=== PATIENT | male | born 1940 | race African-American/Black ===

== ENCOUNTER 2018-04-06 11:38 | Inpatient (IN) ==
[2018-04-06] MEDS ORDERED: ALBUTEROL 2.5 MG/3 ML NEB RESP TX STA (12:11)
[2018-04-06 12:15] LABS: Basophils # 0.1 10*3/uL (0.0-0.2); Basophils % 0.9 % (0.0-0.8); Eosinophils # 0.1 10*3/uL (0.0-0.87); Eosinophils % 0.9 % (0.00-10.9); Hematocrit 46.7 VOL% (42.0-52.0); Hemoglobin 14.9 GM/DL (14.0-18.0); Immature Granulocytes % 6.6 %; Immature Granulocytes Absolute 0.93 #; Lymphocytes # 3.4 10*3/uL (1.4-4.0); Lymphocytes % 23.9 % (21.2-54.2); Mean Corpuscular HGB Conc 31.9 GM/DL (32-36); Mean Corpuscular Hemoglobin 30 PG (27-34); Mean Corpuscular Volume 93.6 FL (87-102); Mean Platelet Volume 9.7 FL (9.6-12.0); Monocytes # 1.1 10*3/uL (0.11-0.8); Monocytes % 7.5 % (1.7-12.7); NRBC # 0.03 10*3/uL; Neutrophils # 8.5 10*3/uL (1.4-7.4); Neutrophils % 60.2 % (38.7-73.9); Platelet Count 293 T/CUMM (130-400); Red Blood Count 4.99 MC/CUMM (3.8-5.5); Red Cell Distribution Width 14.4 % (9.3-17.3); White Blood Count 14.1 T/CUMM (4-12)
[2018-04-06 12:36] LABS: Bilirubin,Total 0.6 MG/DL (0.2-1.0); Calcium 8.5 MG/DL (8.5-10.1); Osmolality,Calculated 285.3 MOS/KG (273-304); Potassium 4.2 MMOL/L (3.5-5.1); Total Protein 6.6 G/DL (6.4-8.3)
[2018-04-06 13:16] LABS: Anisocytosis 1+; Band Neutrophils 1 % (0-10); Eosinophils 3 % (0-10); Lymphocytes 22 % (20-55); Macrocytosis Slight; Platelet Estimate Normal; Segmented Neutrophils 69 % (50-85); Total Cells Counted 100
[2018-04-06] MEDS ORDERED: methylPREDNISolone SOD SUC 125 MG/2 ML VIAL IV STA (13:17)
[2018-04-06] MEDS ORDERED: LEVOFLOXACIN INJ 500 MG in PREMIX 1 EACH IV STA (13:17)
[2018-04-06] MEDS ORDERED: GLUCAGON 1 MG VIAL IM PRN (13:48)
[2018-04-06] MEDS ORDERED: ONDANSETRON 4 MG/2 ML VIAL IV PRN (13:48)
[2018-04-06] MEDS ORDERED: DEXTROSE 50% 25 GM/50 ML VIAL IV PRN (13:48)
[2018-04-06] MEDS ORDERED: PROMETHAZINE 25 MG/1 ML VIAL IM PRN (13:48)
[2018-04-06] MEDS ORDERED: ALBUTEROL 2.5 MG/3 ML NEB RESP TX PRN (13:52)
[2018-04-06] MEDS: PIPERACILLIN/TAZOBACTAM 3,375 MG in SODIUM CHLORIDE 0.9% 100 ML IV SCH ×2 (15:35→22:51)
[2018-04-06] MEDS: ALBUTEROL/IPRATROPIUM 3 ML NEB RESP TX SCH ×2 (16:33→19:24)
[2018-04-06] MEDS: INSULIN LISPRO 100 UNIT/ML SUBCUT SCH ×2 (17:16→22:46)
[2018-04-06] MEDS: GABAPENTIN 600 MG TABLET PO SCH (22:46)
[2018-04-06] MEDS: guaiFENesin/DM ER 600-30 MG TABLET PO SCH (22:46)
[2018-04-06] MEDS: SIMVASTATIN 40 MG TABLET PO SCH (22:46)
[2018-04-06] MEDS: BRIMONIDINE 0.15% OPH SOLN 1 DROP/DROPS BOTTLE BOTH EYES SCH (22:47)
[2018-04-06] MEDS: PILOCARPINE 2% BOTH EYES SCH (22:47)
[2018-04-06] MEDS: methylPREDNISolone SOD SUC 125 MG/2 ML VIAL IV SCH (22:50)
[2018-04-06] MEDS: LATANOPROST 0.005% OPH SOLN 2.5 ML BOTTLE BOTH EYES SCH (22:50)
[2018-04-07] MEDS: ALBUTEROL/IPRATROPIUM 3 ML NEB RESP TX SCH ×4 (00:23→19:46)
[2018-04-07 05:58] LABS: Basophils # 0.1 10*3/uL (0.0-0.2); Basophils % 0.5 % (0.0-0.8); Hematocrit 42.8 VOL% (42.0-52.0); Immature Granulocytes % 5.5 %; Immature Granulocytes Absolute 0.81 #; Lymphocytes # 1.6 10*3/uL (1.4-4.0); Mean Corpuscular HGB Conc 32.7 GM/DL (32-36); Mean Corpuscular Hemoglobin 30 PG (27-34); Mean Corpuscular Volume 91.6 FL (87-102); Mean Platelet Volume 9.8 FL (9.6-12.0); Monocytes # 0.2 10*3/uL (0.11-0.8); Platelet Count 294 T/CUMM (130-400); Red Blood Count 4.67 MC/CUMM (3.8-5.5); Red Cell Distribution Width 14.2 % (9.3-17.3); White Blood Count 14.6 T/CUMM (4-12)
[2018-04-07 06:24] LABS: Albumin 2.5 G/DL (3.4-5.0); Bilirubin,Total 0.6 MG/DL (0.2-1.0); Calcium 8.8 MG/DL (8.5-10.1); Osmolality,Calculated 289.1 MOS/KG (273-304); Potassium 4.2 MMOL/L (3.5-5.1); Thyroid Stimulating Hormone 0.418 uIU/ml (0.358-3.74); Total Protein 6.6 G/DL (6.4-8.3)
[2018-04-07 06:31] LABS: Band Neutrophils 1 % (0-10); Lymphocytes 11 % (20-55); Platelet Estimate Normal; Segmented Neutrophils 86 % (50-85); Total Cells Counted 100
[2018-04-07] MEDS: methylPREDNISolone SOD SUC 125 MG/2 ML VIAL IV SCH ×3 (06:52→22:27)
[2018-04-07] MEDS: PIPERACILLIN/TAZOBACTAM 3,375 MG in SODIUM CHLORIDE 0.9% 100 ML IV SCH ×3 (06:53→22:29)
[2018-04-07] MEDS: metFORMIN 500 MG TABLET PO SCH (08:55)
[2018-04-07] MEDS: POTASSIUM CHLORIDE 20 MEQ TABLET PO SCH (08:55)
[2018-04-07] MEDS: INSULIN LISPRO 100 UNIT/ML SUBCUT SCH ×4 (08:55→22:25)
[2018-04-07] MEDS: PANTOPRAZOLE 40 MG TABLET PO SCH (08:55)
[2018-04-07] MEDS: GABAPENTIN 600 MG TABLET PO SCH ×2 (08:55→22:26)
[2018-04-07] MEDS: TAMSULOSIN 0.4 MG CAPSULE PO SCH (08:56)
[2018-04-07] MEDS: RIVAROXABAN 10 MG TABLET PO SCH (08:56)
[2018-04-07] MEDS: DILTIAZEM CD 240 MG CAPSULE PO SCH (08:56)
[2018-04-07] MEDS: BRIMONIDINE 0.15% OPH SOLN 1 DROP/DROPS BOTTLE BOTH EYES SCH ×2 (08:56→22:27)
[2018-04-07] MEDS: ASPIRIN EC 325 MG TABLET PO SCH (08:56)
[2018-04-07] MEDS ORDERED: FUROSEMIDE 80 MG TABLET PO SCH (09:00)
[2018-04-07] MEDS ORDERED: MONTELUKAST 10 MG TABLET PO SCH (09:00)
[2018-04-07] MEDS ORDERED: PANTOPRAZOLE 40 MG TABLET PO SCH (09:00)
[2018-04-07] MEDS ORDERED: DILTIAZEM CD 180 MG CAPSULE PO SCH (09:00)
[2018-04-07] MEDS: NON-FORMULARY MEDICATION (Fluticasone/Vilanterol [Breo Ellipta 100-25 Mcg Inh] 1 PUFF) INH SCH (09:01)
[2018-04-07] MEDS: guaiFENesin/DM ER 600-30 MG TABLET PO SCH ×2 (09:01→22:26)
[2018-04-07] MEDS: PILOCARPINE 2% BOTH EYES SCH ×2 (09:01→22:27)
[2018-04-07 09:17] LABS: Apearance,Urine CLEAR (Clear); Bilirubin,Urine Negative (Negative); Blood, Urine Negative (Negative); Glucose,Urine (UA) Negative (Negative); Ketones,Urine Negative (Negative); Mucus,Urine Occasional /LPF (Occasional); Nitrite,Urine Negative (Negative); Protein,Urine Negative; RBC,Urine 1 /HPF (0-4); Urine Color Straw (Yellow); Urine Urobilinogen < 2.0 EU/DL (0.2-1.0); WBC,Urine <1 /HPF (0-6)
[2018-04-07] MEDS ORDERED: DILTIAZEM 60 MG TABLET PO ONE (09:30)
[2018-04-07] MEDS: DORNASE ALFA 2.5 MG/2.5 ML VIAL RESP TX SCH ×2 (12:18→19:46)
[2018-04-07] MEDS: DIGOXIN 0.25 MG TABLET PO SCH (12:23)
[2018-04-07] MEDS: LEVOFLOXACIN INJ 500 MG in PREMIX 1 EACH IV SCH (12:23)
[2018-04-07] MEDS ORDERED: LEVOFLOXACIN INJ 750 MG in PREMIX 1 EACH IV SCH (13:00)
[2018-04-07] MEDS: SIMVASTATIN 40 MG TABLET PO SCH (22:26)
[2018-04-07] MEDS: MONTELUKAST 10 MG TABLET PO SCH (22:27)
[2018-04-07] MEDS: LATANOPROST 0.005% OPH SOLN 2.5 ML BOTTLE BOTH EYES SCH (22:27)
[2018-04-08] MEDS: ALBUTEROL/IPRATROPIUM 3 ML NEB RESP TX SCH ×5 (01:23→19:26)
[2018-04-08 05:22] LABS: Calcium 8.9 MG/DL (8.5-10.1); Osmolality,Calculated 295.8 MOS/KG (273-304); Potassium 4.5 MMOL/L (3.5-5.1)
[2018-04-08 05:46] LABS: Hemoglobin 13.7 GM/DL (14.0-18.0); Red Blood Count 4.55 MC/CUMM (3.8-5.5); White Blood Count 28.2 T/CUMM (4-12)
[2018-04-08] MEDS: methylPREDNISolone SOD SUC 125 MG/2 ML VIAL IV SCH ×3 (05:46→21:14)
[2018-04-08 05:47] LABS: Basophils # 0.1 10*3/uL (0.0-0.2); Basophils % 0.3 % (0.0-0.8); Immature Granulocytes % 3.8 %; Immature Granulocytes Absolute 1.07 #; Lymphocytes # 1.4 10*3/uL (1.4-4.0); Lymphocytes % 4.9 % (21.2-54.2); Mean Corpuscular HGB Conc 32.6 GM/DL (32-36); Mean Corpuscular Hemoglobin 30 PG (27-34); Mean Corpuscular Volume 92.3 FL (87-102); Mean Platelet Volume 10.1 FL (9.6-12.0); Monocytes # 0.7 10*3/uL (0.11-0.8); Monocytes % 2.6 % (1.7-12.7); Neutrophils # 24.9 10*3/uL (1.4-7.4); Neutrophils % 88.4 % (38.7-73.9); Platelet Count 301 T/CUMM (130-400); Red Cell Distribution Width 14.3 % (9.3-17.3)
[2018-04-08] MEDS: PIPERACILLIN/TAZOBACTAM 3,375 MG in SODIUM CHLORIDE 0.9% 100 ML IV SCH ×3 (05:47→21:14)
[2018-04-08 06:48] LABS: Lymphocytes 3 % (20-55); Platelet Estimate Normal; Segmented Neutrophils 94 % (50-85); Total Cells Counted 100
[2018-04-08 06:49] LABS: Polychromasia Few
[2018-04-08] MEDS: DORNASE ALFA 2.5 MG/2.5 ML VIAL RESP TX SCH ×2 (07:27→20:47)
[2018-04-08] MEDS: INSULIN LISPRO 100 UNIT/ML SUBCUT SCH ×3 (09:00→16:43)
[2018-04-08] MEDS: metFORMIN 500 MG TABLET PO SCH (09:01)
[2018-04-08] MEDS: BRIMONIDINE 0.15% OPH SOLN 1 DROP/DROPS BOTTLE BOTH EYES SCH (09:02)
[2018-04-08] MEDS: ASPIRIN EC 325 MG TABLET PO SCH (09:02)
[2018-04-08] MEDS: TAMSULOSIN 0.4 MG CAPSULE PO SCH (09:03)
[2018-04-08] MEDS: NON-FORMULARY MEDICATION (Fluticasone/Vilanterol [Breo Ellipta 100-25 Mcg Inh] 1 PUFF) INH SCH (09:05)
[2018-04-08] MEDS: GABAPENTIN 600 MG TABLET PO SCH ×2 (09:06→21:15)
[2018-04-08] MEDS: guaiFENesin/DM ER 600-30 MG TABLET PO SCH ×2 (09:06→21:15)
[2018-04-08] MEDS: PILOCARPINE 2% BOTH EYES SCH (09:06)
[2018-04-08] MEDS: POTASSIUM CHLORIDE 20 MEQ TABLET PO SCH (09:06)
[2018-04-08] MEDS: MONTELUKAST 10 MG TABLET PO SCH ×2 (09:07→21:15)
[2018-04-08] MEDS: RIVAROXABAN 10 MG TABLET PO SCH (09:07)
[2018-04-08] MEDS: PANTOPRAZOLE 40 MG TABLET PO SCH (09:07)
[2018-04-08] MEDS: DILTIAZEM CD 240 MG CAPSULE PO SCH (12:41)
[2018-04-08] MEDS: DIGOXIN 0.25 MG TABLET PO SCH (13:21)
[2018-04-08] MEDS: LEVOFLOXACIN INJ 500 MG in PREMIX 1 EACH IV SCH (13:26)
[2018-04-08] MEDS: SIMVASTATIN 40 MG TABLET PO SCH (21:15)
[2018-04-09] MEDS: ALBUTEROL/IPRATROPIUM 3 ML NEB RESP TX SCH ×4 (00:26→19:44)
[2018-04-09] MEDS: LATANOPROST 0.005% OPH SOLN 2.5 ML BOTTLE BOTH EYES SCH ×2 (01:58→22:29)
[2018-04-09] MEDS: INSULIN LISPRO 100 UNIT/ML SUBCUT SCH ×5 (01:58→22:28)
[2018-04-09] MEDS: BRIMONIDINE 0.15% OPH SOLN 1 DROP/DROPS BOTTLE BOTH EYES SCH ×3 (01:58→22:28)
[2018-04-09] MEDS: PILOCARPINE 2% BOTH EYES SCH ×3 (01:58→22:28)
[2018-04-09] MEDS: methylPREDNISolone SOD SUC 125 MG/2 ML VIAL IV SCH (05:01)
[2018-04-09] MEDS: PIPERACILLIN/TAZOBACTAM 3,375 MG in SODIUM CHLORIDE 0.9% 100 ML IV SCH ×3 (05:17→21:02)
[2018-04-09 05:36] LABS: Basophils # 0.1 10*3/uL (0.0-0.2); Basophils % 0.3 % (0.0-0.8); Hematocrit 40.7 VOL% (42.0-52.0); Hemoglobin 12.9 GM/DL (14.0-18.0); Immature Granulocytes % 3.4 %; Immature Granulocytes Absolute 0.94 #; Lymphocytes % 3.8 % (21.2-54.2); Mean Corpuscular HGB Conc 31.7 GM/DL (32-36); Mean Corpuscular Hemoglobin 30 PG (27-34); Mean Corpuscular Volume 93.8 FL (87-102); Monocytes # 0.7 10*3/uL (0.11-0.8); Monocytes % 2.5 % (1.7-12.7); Platelet Count 291 T/CUMM (130-400); Red Blood Count 4.34 MC/CUMM (3.8-5.5); Red Cell Distribution Width 14.4 % (9.3-17.3); White Blood Count 27.7 T/CUMM (4-12)
[2018-04-09 05:56] LABS: Calcium 8.6 MG/DL (8.5-10.1); Osmolality,Calculated 301.6 MOS/KG (273-304); Potassium 4.5 MMOL/L (3.5-5.1)
[2018-04-09 06:05] LABS: Hypochromasia 1+; Lymphocytes 5 % (20-55); Ovalocytes Slight; Platelet Estimate Adequate; Segmented Neutrophils 91 % (50-85); Total Cells Counted 100
[2018-04-09] MEDS: DORNASE ALFA 2.5 MG/2.5 ML VIAL RESP TX SCH ×2 (07:19→19:44)
[2018-04-09] MEDS: TAMSULOSIN 0.4 MG CAPSULE PO SCH (08:54)
[2018-04-09] MEDS: PANTOPRAZOLE 40 MG TABLET PO SCH (08:54)
[2018-04-09] MEDS: guaiFENesin/DM ER 600-30 MG TABLET PO SCH ×2 (08:54→20:40)
[2018-04-09] MEDS: ASPIRIN EC 325 MG TABLET PO SCH (08:54)
[2018-04-09] MEDS: RIVAROXABAN 10 MG TABLET PO SCH (08:54)
[2018-04-09] MEDS: DILTIAZEM CD 240 MG CAPSULE PO SCH (08:54)
[2018-04-09] MEDS: MONTELUKAST 10 MG TABLET PO SCH ×2 (08:55→20:40)
[2018-04-09] MEDS: GABAPENTIN 600 MG TABLET PO SCH ×2 (08:55→20:40)
[2018-04-09] MEDS: metFORMIN 500 MG TABLET PO SCH (08:55)
[2018-04-09] MEDS: POTASSIUM CHLORIDE 20 MEQ TABLET PO SCH (08:59)
[2018-04-09] MEDS: NON-FORMULARY MEDICATION (Fluticasone/Vilanterol [Breo Ellipta 100-25 Mcg Inh] 1 PUFF) INH SCH (09:00)
[2018-04-09] MEDS: LEVOFLOXACIN INJ 500 MG in PREMIX 1 EACH IV SCH (13:46)
[2018-04-09] MEDS: DIGOXIN 0.25 MG TABLET PO SCH (13:46)
[2018-04-09] MEDS: methylPREDNISolone SOD SUC 40 MG/1 ML VIAL IV SCH ×2 (13:47→21:02)
[2018-04-09] MEDS: SIMVASTATIN 40 MG TABLET PO SCH (20:40)
[2018-04-10] MEDS: ALBUTEROL/IPRATROPIUM 3 ML NEB RESP TX SCH ×4 (00:45→20:01)
[2018-04-10] MEDS: PIPERACILLIN/TAZOBACTAM 3,375 MG in SODIUM CHLORIDE 0.9% 100 ML IV SCH ×3 (05:36→21:16)
[2018-04-10] MEDS: methylPREDNISolone SOD SUC 40 MG/1 ML VIAL IV SCH ×3 (05:37→21:15)
[2018-04-10] MEDS: DORNASE ALFA 2.5 MG/2.5 ML VIAL RESP TX SCH ×2 (07:20→20:00)
[2018-04-10] MEDS: INSULIN LISPRO 100 UNIT/ML SUBCUT SCH ×4 (07:55→21:54)
[2018-04-10] MEDS: PANTOPRAZOLE 40 MG TABLET PO SCH (08:02)
[2018-04-10] MEDS: metFORMIN 500 MG TABLET PO SCH (08:02)
[2018-04-10] MEDS: GABAPENTIN 600 MG TABLET PO SCH ×2 (08:02→21:15)
[2018-04-10] MEDS: RIVAROXABAN 10 MG TABLET PO SCH (08:02)
[2018-04-10] MEDS: guaiFENesin/DM ER 600-30 MG TABLET PO SCH ×2 (08:02→21:15)
[2018-04-10] MEDS: TAMSULOSIN 0.4 MG CAPSULE PO SCH (08:02)
[2018-04-10] MEDS: ASPIRIN EC 325 MG TABLET PO SCH (08:02)
[2018-04-10] MEDS: MONTELUKAST 10 MG TABLET PO SCH ×2 (08:02→21:15)
[2018-04-10] MEDS: DILTIAZEM CD 240 MG CAPSULE PO SCH (08:03)
[2018-04-10] MEDS: POTASSIUM CHLORIDE 20 MEQ TABLET PO SCH (08:03)
[2018-04-10] MEDS: PILOCARPINE 2% BOTH EYES SCH ×2 (08:04→21:17)
[2018-04-10] MEDS: BRIMONIDINE 0.15% OPH SOLN 1 DROP/DROPS BOTTLE BOTH EYES SCH ×2 (08:04→21:17)
[2018-04-10] MEDS: NON-FORMULARY MEDICATION (Fluticasone/Vilanterol [Breo Ellipta 100-25 Mcg Inh] 1 PUFF) INH SCH (08:05)
[2018-04-10] MEDS: DIGOXIN 0.25 MG TABLET PO SCH (12:57)
[2018-04-10] MEDS: LEVOFLOXACIN INJ 500 MG in PREMIX 1 EACH IV SCH (12:57)
[2018-04-10] MEDS: SIMVASTATIN 40 MG TABLET PO SCH (21:15)
[2018-04-10] MEDS: LATANOPROST 0.005% OPH SOLN 2.5 ML BOTTLE BOTH EYES SCH (21:17)
[2018-04-10] MEDS ORDERED: MAGNESIUM HYDROXIDE SUSP 30 ML UDCUP PO PRN (21:31)
[2018-04-11] MEDS: ALBUTEROL/IPRATROPIUM 3 ML NEB RESP TX SCH ×5 (01:34→19:07)
[2018-04-11] MEDS: PIPERACILLIN/TAZOBACTAM 3,375 MG in SODIUM CHLORIDE 0.9% 100 ML IV SCH ×2 (05:01→13:45)
[2018-04-11] MEDS: methylPREDNISolone SOD SUC 40 MG/1 ML VIAL IV SCH ×3 (05:01→21:32)
[2018-04-11 05:49] LABS: Basophils # 0.1 10*3/uL (0.0-0.2); Basophils % 0.5 % (0.0-0.8); Hematocrit 40.6 VOL% (42.0-52.0); Hemoglobin 12.9 GM/DL (14.0-18.0); Immature Granulocytes % 3.7 %; Immature Granulocytes Absolute 0.86 #; Lymphocytes # 0.8 10*3/uL (1.4-4.0); Lymphocytes % 3.5 % (21.2-54.2); Mean Corpuscular HGB Conc 31.8 GM/DL (32-36); Mean Corpuscular Hemoglobin 30 PG (27-34); Mean Corpuscular Volume 93.3 FL (87-102); Monocytes # 0.6 10*3/uL (0.11-0.8); Monocytes % 2.7 % (1.7-12.7); Neutrophils # 21.1 10*3/uL (1.4-7.4); Neutrophils % 89.6 % (38.7-73.9); Platelet Count 249 T/CUMM (130-400); Red Blood Count 4.35 MC/CUMM (3.8-5.5); Red Cell Distribution Width 14.6 % (9.3-17.3); White Blood Count 23.5 T/CUMM (4-12)
[2018-04-11 06:05] LABS: Calcium 8.2 MG/DL (8.5-10.1); Osmolality,Calculated 303.4 MOS/KG (273-304); Potassium 4.7 MMOL/L (3.5-5.1)
[2018-04-11 06:07] LABS: Hypochromasia 1+; Lymphocytes 7 % (20-55); Segmented Neutrophils 90 % (50-85); Target Cells Slight; Total Cells Counted 100
[2018-04-11 06:08] LABS: Macrocytosis Slight
[2018-04-11] MEDS: INSULIN LISPRO 100 UNIT/ML SUBCUT SCH ×4 (07:41→21:34)
[2018-04-11] MEDS: RIVAROXABAN 10 MG TABLET PO SCH (08:05)
[2018-04-11] MEDS: DILTIAZEM CD 240 MG CAPSULE PO SCH (08:05)
[2018-04-11] MEDS: guaiFENesin/DM ER 600-30 MG TABLET PO SCH (08:05)
[2018-04-11] MEDS: GABAPENTIN 600 MG TABLET PO SCH ×2 (08:05→21:32)
[2018-04-11] MEDS: ASPIRIN EC 325 MG TABLET PO SCH (08:05)
[2018-04-11] MEDS: PANTOPRAZOLE 40 MG TABLET PO SCH (08:05)
[2018-04-11] MEDS: MONTELUKAST 10 MG TABLET PO SCH ×2 (08:05→21:32)
[2018-04-11] MEDS: metFORMIN 500 MG TABLET PO SCH (08:05)
[2018-04-11] MEDS: TAMSULOSIN 0.4 MG CAPSULE PO SCH (08:05)
[2018-04-11] MEDS: POTASSIUM CHLORIDE 20 MEQ TABLET PO SCH (08:05)
[2018-04-11] MEDS: BRIMONIDINE 0.15% OPH SOLN 1 DROP/DROPS BOTTLE BOTH EYES SCH ×2 (08:07→21:34)
[2018-04-11] MEDS: PILOCARPINE 2% BOTH EYES SCH ×2 (08:07→21:33)
[2018-04-11] MEDS: NON-FORMULARY MEDICATION (Fluticasone/Vilanterol [Breo Ellipta 100-25 Mcg Inh] 1 PUFF) INH SCH (08:07)
[2018-04-11] MEDS: DORNASE ALFA 2.5 MG/2.5 ML VIAL RESP TX SCH ×2 (09:54→19:07)
[2018-04-11] MEDS: LEVOFLOXACIN INJ 500 MG in PREMIX 1 EACH IV SCH (12:39)
[2018-04-11] MEDS: DIGOXIN 0.25 MG TABLET PO SCH (12:40)
[2018-04-11] MEDS: SIMVASTATIN 40 MG TABLET PO SCH (21:32)
[2018-04-11] MEDS: LATANOPROST 0.005% OPH SOLN 2.5 ML BOTTLE BOTH EYES SCH (21:33)
[2018-04-12] MEDS: ALBUTEROL/IPRATROPIUM 3 ML NEB RESP TX SCH ×2 (01:20→07:39)
[2018-04-12 05:36] LABS: Basophils # 0.1 10*3/uL (0.0-0.2); Basophils % 0.4 % (0.0-0.8); Hemoglobin 12.9 GM/DL (14.0-18.0); Immature Granulocytes % 3.6 %; Immature Granulocytes Absolute 0.82 #; Lymphocytes # 0.9 10*3/uL (1.4-4.0); Lymphocytes % 3.8 % (21.2-54.2); Mean Corpuscular HGB Conc 32.3 GM/DL (32-36); Mean Corpuscular Hemoglobin 30 PG (27-34); Mean Corpuscular Volume 93.7 FL (87-102); Mean Platelet Volume 10.1 FL (9.6-12.0); Monocytes # 0.6 10*3/uL (0.11-0.8); Monocytes % 2.5 % (1.7-12.7); NRBC # 0.02 10*3/uL; Neutrophils # 20.2 10*3/uL (1.4-7.4); Neutrophils % 89.7 % (38.7-73.9); Platelet Count 224 T/CUMM (130-400); Red Blood Count 4.27 MC/CUMM (3.8-5.5); Red Cell Distribution Width 14.7 % (9.3-17.3); White Blood Count 22.6 T/CUMM (4-12)
[2018-04-12] MEDS: methylPREDNISolone SOD SUC 40 MG/1 ML VIAL IV SCH (05:40)
[2018-04-12 05:52] LABS: Calcium 8.5 MG/DL (8.5-10.1); Osmolality,Calculated 297.7 MOS/KG (273-304)
[2018-04-12 06:24] LABS: Lymphocytes 3 % (20-55); Segmented Neutrophils 97 % (50-85); Total Cells Counted 100
[2018-04-12 06:25] LABS: Platelet Estimate Adequate
[2018-04-12] MEDS: INSULIN LISPRO 100 UNIT/ML SUBCUT SCH ×2 (07:52→10:56)
[2018-04-12] MEDS: POTASSIUM CHLORIDE 20 MEQ TABLET PO SCH (08:15)
[2018-04-12] MEDS: RIVAROXABAN 10 MG TABLET PO SCH (08:15)
[2018-04-12] MEDS: MONTELUKAST 10 MG TABLET PO SCH (08:15)
[2018-04-12] MEDS: DILTIAZEM CD 240 MG CAPSULE PO SCH (08:15)
[2018-04-12] MEDS: TAMSULOSIN 0.4 MG CAPSULE PO SCH (08:15)
[2018-04-12] MEDS: ASPIRIN EC 325 MG TABLET PO SCH (08:15)
[2018-04-12] MEDS: PANTOPRAZOLE 40 MG TABLET PO SCH (08:15)
[2018-04-12] MEDS: GABAPENTIN 600 MG TABLET PO SCH (08:15)
[2018-04-12] MEDS: PILOCARPINE 2% BOTH EYES SCH (08:16)
[2018-04-12] MEDS: BRIMONIDINE 0.15% OPH SOLN 1 DROP/DROPS BOTTLE BOTH EYES SCH (08:16)
[2018-04-12] MEDS: NON-FORMULARY MEDICATION (Fluticasone/Vilanterol [Breo Ellipta 100-25 Mcg Inh] 1 PUFF) INH SCH (08:16)
[2018-04-12 08:35] VITALS: BP 129/82
[2018-04-12] MEDS: DORNASE ALFA 2.5 MG/2.5 ML VIAL RESP TX SCH (10:54)
[2018-04-13] MEDS ORDERED: FUROSEMIDE 40 MG TABLET PO SCH (09:00)
== END 2018-04-12 12:45 | disposition home or self-care (01) | DRG 190 ==
LOC: N.ED 11:38 → N.EDINP 13:48 → SUATTDRO 13:48 → N.2W 15:54 → N.5E 17:24
PROVIDERS: ADMIT Internal Medicine Cardiovascular Disease; ATTEND Internal Medicine